=== PATIENT | female | born 2005 ===

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

== ENCOUNTER → 2023-06-11 09:26 | Outpatient (BNVA) | payer OTHER, SELFPAY ==
[2022-11-14 10:42] VITALS: BP 133/88; BMI 44.3
== END ==
PROVIDERS: PCP Nurse Practitioner; Visit Provider Nurse Practitioner
DX: J02.9 Acute pharyngitis, unspecified (principal)
CPT/HCPCS: 87880

== ENCOUNTER → 2023-07-18 15:50 | Outpatient (BNVA) | payer MEDICAID, SELFPAY ==
[2022-11-14 10:42] VITALS: BP 133/88; BMI 44.3
== END ==
PROVIDERS: PCP Nurse Practitioner; Visit Provider Emergency Medicine
DX: R35.0 Frequency of micturition (principal); R11.0 Nausea; K52.9 Noninfective gastroenteritis and colitis, unspecified
CPT/HCPCS: 81000; 81025

== ENCOUNTER 2024-01-08 10:32 | Outpatient (CLI) | payer MEDICAID, SELFPAY ==
[2023-12-30 12:47] VITALS: BP 133/88; BMI 44.3
[2024-01-08 11:03] LABS: Basophils # 0.1 10^3/uL (0.0-0.1); Basophils % 0.6 %; Eosinophils # 0.2 10^3/uL (0.0-0.8); Eosinophils % 1.9 %; Hematocrit 42.6 % (36-47); Lymphocytes # 2.4 10^3/uL (1.5-6.5); Lymphocytes % 30.1 %; Mean Corpuscular Hemoglobin 26.6 pg (27-33); Mean Corpuscular Volume 85.9 fl (85-98); Mean Platelet Volume 9.8 fL (7.4-10.4); Monocytes # 0.5 10^3/uL (0.2-0.9); Monocytes % 6.5 %; Neutrophils # 4.83 10^3/uL (1.8-8.0); Neutrophils % 60.8 %; Nucleated Red Blood Cells % 0 %; Platelet Count 348 10^3/cmm (157-399); Red Blood Count 4.96 10^6/uL (3.85-5.65); Red Cell Distribution Width 14.3 % (12.1-15.1); White Blood Count 7.95 10^3/uL (4.5-13.0)
[2024-01-08 11:17] LABS: Estmated Average Glucose 111; Hemoglobin A1C 5.5 % (4.0-6.0)
[2024-01-08 11:30] LABS: Free T4 Free Thyroxine 1.27 ng/dL (0.82-1.77); Hepatitis C Virus Antibody Non-Reactive (Nonreactive); Thyroid Stimulating Hormone 3.32 uIU/mL (0.27-4.20)
[2024-01-08 11:31] LABS: Rapid Plasma Reagin Syphilis Nonreactive (Nonreactive)
[2024-01-08 11:41] LABS: Alanine Aminotransferase 22 U/L (0-33); Albumin Level 4.3 g/dL (3.5-5.2); Alkaline Phosphatase 76 U/L (35-105); Anion Gap 16.1 (5-19); Aspartate Amino Transferase 18 U/L (0-32); Blood Urea Nitrogen 11 mg/dL (6-20); Calcium 8.7 mg/dL (8.5-10.5); Carbon Dioxide 21 mmol/L (22-29); Chloride 104 mmol/L (98-107); Chol HDL Ratio 4.65 mg/dL (0.0-4.40); Cholesterol 172 mg/dL (0-200); Globulin 2.8 g/dL (1.3-4.6); Glomerular Filtration Rate 157.3 mL/min (90-130); Glucose 98 mg/dL (65-115); HDL Cholesterol 37 mg/dL (60-100); LDL Cholesterol Calculated 89 mg/dL (50-129); LDL HDL Ratio 2.41 RATIO (0.00-3.22); Osmolality Calculated 283 mOsm/kg (285-295); Potassium 4.1 mmol/L (3.5-5.1); Sodium 137 mmol/L (136-145); Total Bilirubin 0.3 mg/dL (0.15-1.2); Total Protein 7.1 g/dL (6.6-8.7); Triglycerides 232 mg/dL (0-150)
[2024-01-08 12:35] LABS: 25 Hydroxy Vitamin D 22 ng/mL (30-100); Estradiol 37.7 pg/mL; Prolactin 11.18 ng/mL (4.8-23.3)
[2024-01-09 10:25] LABS: HIV AG/AB 4th Generation NON-REACTIVE (NON-REACTIVE)
== END 2024-01-08 10:33 | disposition home or self-care (01) ==
LOC: LAB 10:34
PROVIDERS: PCP Nurse Practitioner; Visit Provider Nurse Practitioner
DX: Z00.00 Encounter for general adult medical examination without abnormal findings (principal); N93.9 Abnormal uterine and vaginal bleeding, unspecified
CPT/HCPCS: 80053; 80061; 82306; 82670; 83001; 83036; 84146; 84439; 84443; 84702; 85025; 86592; 86803; 87389

== ENCOUNTER → 2024-02-10 16:05 | Outpatient (BNVA) | payer MEDICAID, SELFPAY ==
[2023-12-30 12:47] VITALS: BP 133/88; BMI 44.3
== END ==
PROVIDERS: PCP Nurse Practitioner; Visit Provider Nurse Practitioner Women's Health
DX: O26.90 Pregnancy related conditions, unspecified, unspecified trimester (principal)
CPT/HCPCS: 84702

== ENCOUNTER → 2024-02-12 17:20 | Outpatient (BNVA) | payer MEDICAID, SELFPAY ==
[2023-12-30 12:47] VITALS: BP 133/88; BMI 44.3
== END ==
PROVIDERS: PCP Nurse Practitioner; Visit Provider Physician Assistant
DX: R39.9 Unspecified symptoms and signs involving the genitourinary system (principal)
CPT/HCPCS: 81000; 87086

== ENCOUNTER → 2024-02-29 12:23 | Outpatient (BNVA) | payer MEDICAID, SELFPAY ==
[2023-12-30 12:47] VITALS: BP 133/88; BMI 44.3
== END ==
PROVIDERS: PCP Nurse Practitioner; Visit Provider Nurse Practitioner Women's Health
DX: E28.2 Polycystic ovarian syndrome (principal); N83.02 Follicular cyst of left ovary; N83.01 Follicular cyst of right ovary
CPT/HCPCS: 76830

== ENCOUNTER → 2024-04-21 14:38 | Outpatient (BNVA) | payer MEDICAID, SELFPAY ==
[2023-12-30 12:47] VITALS: BP 133/88; BMI 44.3
== END ==
PROVIDERS: PCP Nurse Practitioner; Visit Provider Emergency Medicine
DX: J02.9 Acute pharyngitis, unspecified (principal)
CPT/HCPCS: 87880